=== PATIENT | male | born 1945 | race Caucasian/White ===

== ENCOUNTER 2019-03-12 08:22 | Emergency (ER) | payer BC, MEDICARE ==
[2019-03-12 08:47] VITALS: BP 160/96
[2019-03-12] MEDS ORDERED: Acetaminophen TAB* 325 MG PO ONE (08:52)
[2019-03-12] MEDS ORDERED: Ibuprofen TAB* 600 MG PO ONE (08:52)
--- NOTE | 2019-03-12 08:54 | UC ---
Back Pain HPI - HPI Summary HPI Summary: CHIEF COMPLAINT and HPI: This is a 73 yo male with severe lumbar discomfort after lifting heavy motorcycle and refrigerator. This condition began yesterday. Since then pain has increased and he c/o numbness in legs . Pain is described as severe, bilateral lumbar, radiating down both legs. Medications & Allergies Reviewed. Nurses Note Reviewed. " a month ago, he fell and landed on his tailbone, then recently he was pushing a motorcycle, and lifting a refrigerator. He is in pain , and having a hard time walking. Pt having numbness and tingling bilateral legs. " Hypertension status reviewed. 160/96; no anti-hypertensive medications. Visit History Reviewed. Chronic conditions and problem list reviewed. Information contributory to present complaint: elevated BP. - History of Current Complaint Chief Complaint: UCBackPain Stated Complaint: BACK PAIN Time Seen by Provider: 03/12/19 08:51 Pain Intensity: 10 - Allergies/Home Medications Allergies/Adverse Reactions: Allergies Allergy/AdvReac Type Severity Reaction Status Date / Time No Known Allergies Allergy Verified 04/12/13 10:11 Home Medications: Home Medications Hydrocodone/Acetaminophen [Hydrocodone-Acetamin 5-325 mg] 3 tab PO ONCE PRN [History Confirmed 03/12/19] PMH/Surg Hx/FS Hx/Imm Hx - Additional Past Medical History Additional PMH: PAST MEDICAL HISTORY: negative admissions for serious medical illness or surgery. FAMILY HISTORY: Positive history of: -HYPTERTENSION -CARDIOVASCULAR DISEASE -STROKE -DIABETES -CANCER -Denies hypertension, heart disease, stroke, diabetes, cancer. 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 Previously Healthy: Yes - Surgical History Surgical History: None - Family History Known Family History: Positive: Other - smoking related FHx such as [place] Negative: Cardiac Disease, Hypertension, Diabetes - Social History Alcohol Use: None Substance Use Type: Marijuana Smoking Status (MU): Never Smoked Tobacco Have You Smoked in the Last Year: No Review of Systems All Other Systems Reviewed And Are Negative: Yes Constitutional: Positive: Negative ENT: Positive: Negative Respiratory: Positive: Negative. Negative: Shortness Of Breath Cardiovascular: Positive: Negative. Negative: Palpitations Gastrointestinal: Positive: Negative. Negative: Abdominal Pain Genitourinary: Positive: Negative Is Patient Immunocompromised?: No Physical Exam - Summary Physical Exam Summary: Appearance: The patient is well-appearing, is in moderate low back pain. Eyes: Conjunctiva are clear. Pupils are equal and reactive to light and accommodation. Extra ocular muscle movement is intact. ENT: The hearing is grossly normal, the pharynx is normal, and the TMs are normal. There is no muffled or hoarse voice. No stridor. Neck: The neck is supple and there is no lymphadenopathy. Respiratory: The chest is nontender to palpation and without crepitus. The lungs are clear, there are normal breath sounds, and there is no respiratory distress. No wheezes, rales or rhonchi. Cardiovascular: Heart sounds reveal a regular rate and rhythm. There are no clicks, rubs or murmurs. There are no carotid bruits or thrills. Circulation is grossly intact. Abdomen: The abdomen is soft and nontender. There is no organomegaly. Bowel sounds are present and within normal limits. No point tenderness at McBurneys point. Musculoskeletal: Strength is intact. The patient moves all extremities. Neurological: The patient is alert. Motor and sensory are examination grossly intact. Speech is normal. Psychological: The patient displays age appropriate behavior Skin: Negative for rashes. Vital Signs: Initial Vital Signs Temp 98.1 F 03/12/19 08:37 Pulse 83 03/12/19 08:37 Resp 24 03/12/19 08:37 BP 160/96 03/12/19 08:37 Pulse Ox 99 03/12/19 08:37 Back Pain Course/Dx - Course Course Of Treatment: MEDICAL DECISION MAKING & PLAN: This is a 73 yo male with severe lumbar discomfort after lifting heavy motorcycle and refrigerator. This condition began yesterday. Since then pain has increased and he c/o numbness in legs . Pain is described as severe, bilateral lumbar, radiating down both legs. Physical examination does not show lower extremity loss of motor function or sensory deficit. X ray consistent with significant arthritis. Differential includes nerve impingement vs. muscle strain. My dx is lumbar muscle strain. 1. OSTEOPENIA. 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 Vicodin given: Reference #: [id number] MEDICATIONS REVIEWED: Medications have been included in the original chart and reviewed. HYPERTENSION STATUS REVIEWED. HTN NOTED: Hypertensive BP reading of 160/96; follow up with PCP within 2 weeks to recheck blood pressure has been recommended to patient. Patient voices understanding. - Differential Dx/Diagnosis Differential Diagnosis/HQI/PQRI: Cauda Equina Syndrome, Fracture, Herniated Disc , Strain, Sprain Provider Diagnosis: Low back pain Discharge - Sign-Out/Discharge Documenting (check all that apply): Patient Departure All imaging exams completed and their final reports reviewed: Yes - Discharge Plan Condition: Stable Disposition: HOME Prescriptions: HYDROcodone/ACETAMIN 5-325 MG* [Kechi 5-325 TAB*] 1 tab PO Q6H #6 tab MDD 4 ValACYclovir (*) [Valtrex 1 GM(*)] 1 gm PO TID #21 tab MDD 3 Patient Education Materials: Shingles (ED), Acute Low Back Pain (ED), Lower Back Exercises (ED) Referrals: No Primary Care Phys,NOPCP [Primary Care Provider] - Additional Instructions: WE DISCUSSED: PLEASE SEEK CARE AT THE EMERGENCY DEPARTMENT IF SYMPTOMS WORSEN OR IF NEW SYMPTOMS DEVELOP. FOLLOW UP WITH YOUR PRIMARY CARE PHYSICIAN IF CONDITION CONTINUES BEYOND 3 DAYS WITHOUT IMPROVEMENT. We are open from 7 a.m. to 10 p.m. Call us with any questions or concerns. YOUR DIAGNOSIS IS: LUMBAR MUSCLE STRAIN; NERVE IRRITATION YOUR PRESCRIPTION RECOMMENDATION IS: VICODIN # 6; IBUPROFEN OTHER INSTRUCTIONS: REST; WARM MOIST HEAT IN THE MORNING; ICE TO THE AREA DURING THE DAY FOR ACUTE PAIN. If pain continues, consider physical therapy. See contact to find primary care physician. Hypertension Discharge Instructions: Your blood pressure reading today was 160/96, indicating HYPERTENSION. Follow- up with your primary care provider within 2 weeks for blood pressure check and appropriate recommendations and treatment, as needed. For pain: Ibuprofen (Motrin and other brand names) 400-600mg PLUS acetaminophen (Tylenol and other brand names) 500mg - 1000mg every 8 hours. Maximum is 3 doses a day. If this dosage is required for more than 5 days, you should re-check with your doctor. The combination of these two over-the- counter medications can be more effective than each one taken alone. Please check with the pharmacist if you have questions about your allergies to these medications. To help you sleep: If you feel as if you want to calm down and get sleepy, over the counter diphenhydramine (Benadryl and other brand names), 25 mg up to every 8 hours may be useful. Please check with the pharmacist if you have questions about your allergies to these medications. Please check with the pharmacist if you have questions about your allergies to these medications. - Billing Disposition and Condition Condition: STABLE Disposition: Home
== END 2019-03-12 10:10 | disposition home or self-care (01) ==
LOC: UCEAST 08:22
DX: S39.012A Strain of muscle, fascia and tendon of lower back, initial encounter (principal); M85.80 Other specified disorders of bone density and structure, unspecified site; X50.0XXA Overexertion from strenuous movement or load, initial encounter; Y92.9 Unspecified place or not applicable
CPT/HCPCS: 72110; 99212; A9270-GY; G0463